=== PATIENT | female | born 1945 | race Caucasian/White ===

== ENCOUNTER 2022-06-19 16:10 | Emergency (ER) | payer OTHER, MEDICARE ==
[2022-06-19 16:39] VITALS: RESP 20; BMI 24.3
[2022-06-19] MEDS ORDERED: BENZOCAINE/MENTH/CETYLPYRD CL 1 EACH LOZENGE MM PRN (19:42)
[2022-06-19 20:41] VITALS: BP 107/47; PULSE 67; TEMP 98.3
== END 2022-06-19 21:00 | disposition home or self-care (01) ==
LOC: JER 16:10
DX: R68.89 Other general symptoms and signs (principal); W18.11XA Fall from or off toilet without subsequent striking against object, initial encounter
CPT/HCPCS: 73521-TC-FY; 99284-25; C9803-CS; U0003; U0005

== ENCOUNTER 2022-06-20 11:34 | Inpatient (IN) | payer OTHER, MEDICARE ==
[2022-06-20] MEDS ORDERED: ACETAMINOPHEN 325 MG TABLET (FP) PO ONE (11:52)
[2022-06-20] MEDS ORDERED: SODIUM CHLORIDE 0.9% 500 ML INFUS.BAG IV ONE (12:02)
[2022-06-20] MEDS ORDERED: ACETAMINOPHEN 325 MG TABLET (FP) ONE (12:24)
[2022-06-20 12:30] LABS: BASO % 0.8 % (0-2.0); EOS % 0.1 % (0-4.5); HEMATOCRIT 35.5 % (32.4-45.2); HEMOGLOBIN 11.5 GM/dL (10.7-15.3); LYMPH % 12.7 % (8-40); MCH 30.6 pg (25.7-33.7); MCHC 32.5 g/dl (32.0-36.0); MEAN CELL VOLUME 94.2 fl (80-96); MEAN PLT VOLUME 8.7 fl (7.5-11.1); MONO % 18.7 % (3.8-10.2); NEUT % 67.7 % (42.8-82.8); PLATELET COUNT 172 10^3/uL (134-434); RBC 3.77 M/mm3 (3.60-5.2); RDW 14.5 % (11.6-15.6); WHITE BLOOD COUNT 6.5 K/mm3 (4.0-10.0)
[2022-06-20 12:52] LABS: ALBUMIN 3.1 g/dl (3.4-5.0); CALCIUM 8.7 mg/dL (8.5-10.1)
[2022-06-20 12:57] LABS: BILIRUBIN,TOTAL 0.3 mg/dL (0.2-1)
[2022-06-20 15:19] LABS: VENOUS BASE EXCESS -0.9 mmol/L (-2-2); VENOUS O2 SATURATION 86.9 % (70-80); VENOUS PCO2 41.6 mmHg (38-52); VENOUS PH 7.382 (7.310-7.410)
[2022-06-20] MEDS ORDERED: ACETAMINOPHEN 325 MG TABLET (FP) PO PRN (16:37)
[2022-06-20 17:17] LABS: EPI CELLS 7 /uL (0-25.1); HYALINE CASTS 0 /uL (0-3.1); URINE APPEARANCE CLEAR; URINE BACTERIA 2051 /uL (0-1359); URINE BILIRUBIN NEGATIVE (NEGATIVE); URINE COLOR YELLOW; URINE GLUCOSE (UA) NEGATIVE (NEGATIVE); URINE KETONE NEGATIVE (NEGATIVE); URINE LEUK ESTERASE NEGATIVE (NEGATIVE); URINE NITRITE NEGATIVE (NEGATIVE); URINE PROTEIN NEGATIVE (NEGATIVE); URINE RBC 12 /uL (0-23.9); URINE UROBILINOGEN 0.2 mg/dL (0.2-1.0); URINE WBC 5 /uL (0-25.8)
[2022-06-20] MEDS ORDERED: LACTATED RINGERS SOLUTION 1,000 ML/1,000 ML INFUS.BAG IV SCH (18:15)
[2022-06-20] MEDS ORDERED: CEFTRIAXONE 1,000 MG in DEXTROSE 5%-WATER - 50 ML IVPB ONE (18:52)
[2022-06-20] MEDS ORDERED: CEFTRIAXONE 1 GM/50 ML BAG ONE (19:43)
[2022-06-20] MEDS ORDERED: guaiFENesin/D-METHORPHAN HB 10 ML UNIT-DOSE CUPS PO ONE (22:01)
[2022-06-20] MEDS ORDERED: guaiFENesin/D-METHORPHAN HB 10 ML UNIT-DOSE CUPS ONE (22:04)
[2022-06-21 07:55] LABS: HEMATOCRIT 37.5 % (32.4-45.2); HEMOGLOBIN 12.8 GM/dL (10.7-15.3); MCH 32.3 pg (25.7-33.7); MEAN CELL VOLUME 94.8 fl (80-96); MEAN PLT VOLUME 8.5 fl (7.5-11.1); PLATELET COUNT 158 10^3/uL (134-434); RBC 3.95 M/mm3 (3.60-5.2); RDW 14.6 % (11.6-15.6); WHITE BLOOD COUNT 6.6 K/mm3 (4.0-10.0)
[2022-06-21 08:20] LABS: BLOOD UREA NITROGEN 12.5 mg/dL (7-18); CALCIUM 8.3 mg/dL (8.5-10.1); MAGNESIUM 1.9 mg/dL (1.8-2.4)
[2022-06-21 08:23] LABS: CREATININE 0.9 mg/dL (0.55-1.3)
[2022-06-21 08:28] LABS: CHOLESTEROL 224 mg/dL (50-200); TRIGLYCERIDES 95 mg/dL (0-150)
[2022-06-21 08:30] LABS: LDL CHOLESTEROL (ONLY SJRH) 129 mg/dL (5-100)
[2022-06-21 08:31] LABS: HDL CHOLESTEROL 63 mg/dL (40-60)
[2022-06-21] MEDS ORDERED: traMADol HCL 50 MG TABLET PO SCH (18:30)
[2022-06-21] MEDS: FAMOTIDINE 20 MG TABLET PO SCH (23:48)
[2022-06-22 00:42] VITALS: BMI 25.4
[2022-06-22] MEDS: FAMOTIDINE 20 MG TABLET PO SCH ×2 (10:00→21:33)
[2022-06-22] MEDS ORDERED: SODIUM CHLORIDE 500 ML IV STA (11:10)
[2022-06-22] MEDS: SODIUM CHLORIDE 1,000 ML IV SCH (13:37)
[2022-06-23] MEDS: FAMOTIDINE 20 MG TABLET PO SCH ×2 (10:03→21:49)
[2022-06-23] MEDS: SODIUM CHLORIDE 1,000 ML IV SCH (17:34)
[2022-06-24] MEDS: FAMOTIDINE 20 MG TABLET PO SCH ×2 (10:27→21:30)
[2022-06-24] MEDS: MIDODRINE HCL 5 MG TABLET PO SCH (20:00)
[2022-06-24] MEDS: LIDOCAINE PATCH REMOVAL MC SCH (21:54)
[2022-06-25] MEDS: LIDOCAINE 5% TOPICAL PATCH TP SCH ×2 (00:23→11:03)
[2022-06-25] MEDS: FAMOTIDINE 20 MG TABLET PO SCH ×2 (11:03→22:08)
[2022-06-25] MEDS: MIDODRINE HCL 5 MG TABLET PO SCH ×2 (11:04→18:01)
[2022-06-25] MEDS ORDERED: SODIUM CHLORIDE 0.9% 500 ML INFUS.BAG IV ONE (12:16)
[2022-06-25] MEDS: ENOXAPARIN NA (PORCINE) 40 MG/0.4 ML DISP.SYRIN SQ SCH (12:57)
[2022-06-25 19:47] LABS: HEMATOCRIT 38.1 % (32.4-45.2); HEMOGLOBIN 12.8 GM/dL (10.7-15.3); MCH 31.5 pg (25.7-33.7); MCHC 33.6 g/dl (32.0-36.0); MEAN CELL VOLUME 93.8 fl (80-96); MEAN PLT VOLUME 8.7 fl (7.5-11.1); PLATELET COUNT 183 10^3/uL (134-434); RBC 4.06 M/mm3 (3.60-5.2); RDW 14.2 % (11.6-15.6); WHITE BLOOD COUNT 4.7 K/mm3 (4.0-10.0)
[2022-06-25 20:09] LABS: CALCIUM 8.9 mg/dL (8.5-10.1)
[2022-06-25 20:10] LABS: BLOOD UREA NITROGEN 13.8 mg/dL (7-18)
[2022-06-25 20:13] LABS: CREATININE 0.8 mg/dL (0.55-1.3)
[2022-06-25] MEDS: LIDOCAINE PATCH REMOVAL MC SCH (22:08)
[2022-06-26 07:06] LABS: BLOOD UREA NITROGEN 13.9 mg/dL (7-18); CALCIUM 8.9 mg/dL (8.5-10.1)
[2022-06-26 07:09] LABS: CREATININE 0.8 mg/dL (0.55-1.3)
[2022-06-26] MEDS: LIDOCAINE 5% TOPICAL PATCH TP SCH ×2 (09:54→10:35)
[2022-06-26] MEDS: MIDODRINE HCL 5 MG TABLET PO SCH ×3 (09:54→17:29)
[2022-06-26] MEDS: FAMOTIDINE 20 MG TABLET PO SCH ×3 (09:54→21:46)
[2022-06-26] MEDS: ENOXAPARIN NA (PORCINE) 40 MG/0.4 ML DISP.SYRIN SQ SCH ×2 (09:54→10:04)
[2022-06-26] MEDS: LIDOCAINE PATCH REMOVAL MC SCH (21:45)
[2022-06-27] MEDS: ENOXAPARIN NA (PORCINE) 40 MG/0.4 ML DISP.SYRIN SQ SCH (11:00)
[2022-06-27] MEDS: MIDODRINE HCL 5 MG TABLET PO SCH (11:00)
[2022-06-27] MEDS: FAMOTIDINE 20 MG TABLET PO SCH ×2 (11:00→22:30)
[2022-06-27] MEDS: LIDOCAINE 5% TOPICAL PATCH TP SCH (11:00)
[2022-06-27 11:19] VITALS: RESP 18
[2022-06-27] MEDS: LIDOCAINE PATCH REMOVAL MC SCH (22:29)
[2022-06-28] MEDS ORDERED: ACETAMINOPHEN 325 MG TABLET (FP) PO PRN (01:37)
[2022-06-28] MEDS: MIDODRINE HCL 5 MG TABLET PO SCH ×2 (07:21→09:40)
[2022-06-28] MEDS: LIDOCAINE 5% TOPICAL PATCH TP SCH (09:40)
[2022-06-28] MEDS: ENOXAPARIN NA (PORCINE) 40 MG/0.4 ML DISP.SYRIN SQ SCH (09:44)
[2022-06-28] MEDS ORDERED: FAMOTIDINE 20 MG TABLET PO SCH (10:00)
[2022-06-28 10:05] LABS: BASO % 1.2 % (0-2.0); EOS % 2.5 % (0-4.5); HEMATOCRIT 40.1 % (32.4-45.2); HEMOGLOBIN 13.5 GM/dL (10.7-15.3); LYMPH % 25.8 % (8-40); MCH 31.4 pg (25.7-33.7); MCHC 33.6 g/dl (32.0-36.0); MEAN CELL VOLUME 93.5 fl (80-96); MEAN PLT VOLUME 8.8 fl (7.5-11.1); MONO % 11.5 % (3.8-10.2); PLATELET COUNT 203 10^3/uL (134-434); RBC 4.29 M/mm3 (3.60-5.2); RDW 13.9 % (11.6-15.6); WHITE BLOOD COUNT 5.9 K/mm3 (4.0-10.0)
[2022-06-28 10:29] LABS: CALCIUM 9.1 mg/dL (8.5-10.1)
[2022-06-28 10:32] LABS: ALBUMIN 3.2 g/dl (3.4-5.0); BLOOD UREA NITROGEN 20.6 mg/dL (7-18)
[2022-06-28 10:34] LABS: CREATININE 0.9 mg/dL (0.55-1.3)
[2022-06-28 10:36] LABS: BILIRUBIN,TOTAL 0.4 mg/dL (0.2-1); TOT PROT 6.6 g/dl (6.4-8.2)
[2022-06-28 12:46] VITALS: BP 104/41; PULSE 90; TEMP 97.6
== END 2022-06-28 13:17 | DRG 553 ==
LOC: JER 11:34 → INTOOBSV 14:22 → JERBED 14:22 → UNDOADMOB 14:22 → JERBED 18:11 → J8W 06-21 21:24 → J4S 06-22 02:29 → OBSVTOIN 06-25 11:53 → J6S 06-27 19:17
PROVIDERS: ADMIT Internal Medicine; ATTEND Nurse Practitioner Family
DX: M17.0 Bilateral primary osteoarthritis of knee (principal); U07.1 COVID-19; N39.0 Urinary tract infection, site not specified; M25.562 Pain in left knee; M25.561 Pain in right knee; K21.9 Gastro-esophageal reflux disease without esophagitis; E86.0 Dehydration; G89.29 Other chronic pain; I95.9 Hypotension, unspecified; M62.81 Muscle weakness (generalized); M25.462 Effusion, left knee; Z85.3 Personal history of malignant neoplasm of breast
CPT/HCPCS: 36415; 70450-TC; 71046-TC-FY; 72125-TC; 72170-TC-FY; 73562-TC-LT-FY; 73562-TC-RT-FY; 80048; 80053; 80061; 81003; 82803; 83036; 83605; 83735; 84100; 84443; 84484; 85025; 85027; 87045; 87046; 93005; 93010; 93306-TC; 93880-TC; 97116-GP; 97162-GP; 99285-25; C9803-CS; G0378; U0003; U0005

== ENCOUNTER 2024-01-30 23:12 | Inpatient (IN) | payer OTHER ==
[2024-01-31 00:42] LABS: BASO % 0.1 % (0-2.0); EOS % 0.3 % (0-4.5); HEMATOCRIT 36.6 % (32.4-45.2); HEMOGLOBIN 12.4 GM/dL (10.7-15.3); LYMPH % 4.5 % (8-40); MCH 32.1 pg (25.7-33.7); MEAN CELL VOLUME 94.5 fl (80-96); MEAN PLT VOLUME 8.3 fl (7.5-11.1); MONO % 9.7 % (3.8-10.2); NEUT % 85.4 % (42.8-82.8); PLATELET COUNT 160 10^3/uL (134-434); RBC 3.88 M/mm3 (3.60-5.2); RDW 14.4 % (11.6-15.6); WHITE BLOOD COUNT 10.4 K/mm3 (4.0-10.0)
[2024-01-31 01:02] LABS: POTASSIUM 3.9 mmol/L (3.5-5.1)
[2024-01-31 01:05] LABS: CALCIUM 8.8 mg/dL (8.5-10.1)
[2024-01-31 01:06] LABS: ALBUMIN 3.2 g/dl (3.4-5.0); BLOOD UREA NITROGEN 14.6 mg/dL (7-18)
[2024-01-31 01:09] LABS: CREATININE 0.9 mg/dL (0.55-1.3)
[2024-01-31 01:10] LABS: BILIRUBIN,TOTAL 0.6 mg/dL (0.2-1); TOT PROT 6.4 g/dl (6.4-8.2)
[2024-01-31] MEDS: LACTATED RINGERS SOLUTION 1,000 ML/1,000 ML INFUS.BAG IV STA (03:14)
[2024-01-31 04:50] LABS: EPI CELLS 8 /uL (0-25.1); HYALINE CASTS 2 /uL (0-3.1); URINE APPEARANCE CLEAR; URINE BILIRUBIN NEGATIVE (NEGATIVE); URINE COLOR YELLOW; URINE GLUCOSE (UA) NEGATIVE (NEGATIVE); URINE KETONE TRACE (NEGATIVE); URINE LEUK ESTERASE 3+ (NEGATIVE); URINE NITRITE POSITIVE (NEGATIVE); URINE PROTEIN NEGATIVE (NEGATIVE); URINE RBC 77 /uL (0-23.9); URINE WBC 827 /uL (0-25.8)
[2024-01-31] MEDS ORDERED: CEFTRIAXONE 1 GM/50 ML BAG ONE (05:13)
[2024-01-31] MEDS: CEFTRIAXONE 1 GM in DEXTROSE 5%-WATER - 100 ML IVPB ONE (05:13)
[2024-01-31] MEDS: SODIUM CHLORIDE 500 ML IV STA ×2 (05:41→07:35)
[2024-01-31] MEDS ORDERED: MIDODRINE HCL 5 MG TABLET PO PRN (08:16)
[2024-01-31] MEDS ORDERED: ACETAMINOPHEN 1000 MG/100 ML BAG IVPB PRN (08:16)
[2024-01-31] MEDS: SODIUM CHLORIDE 1,000 ML IV SCH (08:25)
[2024-01-31 10:46] VITALS: BMI 25.4
[2024-02-01 07:54] LABS: HEMATOCRIT 35.1 % (32.4-45.2); HEMOGLOBIN 11.5 GM/dL (10.7-15.3); MCH 31.4 pg (25.7-33.7); MCHC 32.7 g/dl (32.0-36.0); MEAN CELL VOLUME 95.9 fl (80-96); PLATELET COUNT 158 10^3/uL (134-434); RBC 3.66 M/mm3 (3.60-5.2); RDW 14.4 % (11.6-15.6); WHITE BLOOD COUNT 5.4 K/mm3 (4.0-10.0)
[2024-02-01 08:16] LABS: POTASSIUM 3.9 mmol/L (3.5-5.1)
[2024-02-01 08:17] LABS: CALCIUM 8.5 mg/dL (8.5-10.1)
[2024-02-01 08:18] LABS: ALBUMIN 2.8 g/dl (3.4-5.0); BLOOD UREA NITROGEN 10.5 mg/dL (7-18)
[2024-02-01 08:21] LABS: CREATININE 0.8 mg/dL (0.55-1.3)
[2024-02-01 08:23] LABS: BILIRUBIN,TOTAL 0.3 mg/dL (0.2-1); TOT PROT 5.6 g/dl (6.4-8.2)
[2024-02-01 09:40] LABS: ANISOCYTOSIS 0; MACROCYTOSIS 0
[2024-02-01] MEDS: CEFTRIAXONE 1 GM in DEXTROSE 5%-WATER - 50 ML IVPB SCH (09:49)
[2024-02-02] MEDS: MIDODRINE HCL 5 MG TABLET PO SCH (10:55)
[2024-02-02 11:03] LABS: BASO % 0.9 % (0-2.0); EOS % 3.2 % (0-4.5); HEMATOCRIT 41.7 % (32.4-45.2); HEMOGLOBIN 13.9 GM/dL (10.7-15.3); LYMPH % 17.2 % (8-40); MCH 31.9 pg (25.7-33.7); MCHC 33.4 g/dl (32.0-36.0); MEAN CELL VOLUME 95.5 fl (80-96); MEAN PLT VOLUME 8.8 fl (7.5-11.1); MONO % 13.4 % (3.8-10.2); NEUT % 65.3 % (42.8-82.8); PLATELET COUNT 174 10^3/uL (134-434); RBC 4.36 M/mm3 (3.60-5.2); RDW 14.7 % (11.6-15.6); WHITE BLOOD COUNT 5.7 K/mm3 (4.0-10.0)
[2024-02-02 11:17] LABS: POTASSIUM 4.4 mmol/L (3.5-5.1)
[2024-02-02 11:19] LABS: BLOOD UREA NITROGEN 11.9 mg/dL (7-18)
[2024-02-02 11:23] LABS: CREATININE 0.8 mg/dL (0.55-1.3)
[2024-02-03 06:39] VITALS: BP 123/50
[2024-02-03 09:25] VITALS: PULSE 62; RESP 16; TEMP 97.9
== END 2024-02-03 15:00 | DRG 690 ==
LOC: JER 23:12 → JERBED 01-31 04:55 → J4S 01-31 10:05
PROVIDERS: ADMIT Internal Medicine; ATTEND Internal Medicine
DX: N39.0 Urinary tract infection, site not specified (principal); E27.40 Unspecified adrenocortical insufficiency; E78.5 Hyperlipidemia, unspecified; K21.9 Gastro-esophageal reflux disease without esophagitis; I95.9 Hypotension, unspecified; G89.29 Other chronic pain; R00.1 Bradycardia, unspecified; W18.30XA Fall on same level, unspecified, initial encounter; Y92.099 Unspecified place in other non-institutional residence as the place of occurrence of the external cause; Y99.9 Unspecified external cause status; Z85.3 Personal history of malignant neoplasm of breast; Z96.641 Presence of right artificial hip joint
CPT/HCPCS: 36415; 70450-TC; 71045-TC-FY; 72125-TC; 72170-TC-FY; 73521-TC-FY; 73560-TC-RT-FY; 73562-TC-LT-FY; 73590-TC-LT-FY; 80048; 80053; 80061; 81003; 82533; 82550; 82962; 83036; 83605; 83735; 84439; 84443; 84484; 85025; 87040; 87086; 93005; 93010; 93306-TC; 93880-TC; 97116-GP; 97161-GP; 99285-25

== ENCOUNTER 2024-02-16 17:02 | Emergency (ER) | payer OTHER ==
[2024-02-16 17:32] VITALS: TEMP 98.3; BMI 24.3
[2024-02-16 19:12] LABS: BASO % 0.5 % (0-2.0); HEMATOCRIT 40.1 % (32.4-45.2); HEMOGLOBIN 13.7 GM/dL (10.7-15.3); LYMPH % 3.5 % (8-40); MCH 32.4 pg (25.7-33.7); MCHC 34.2 g/dl (32.0-36.0); MEAN CELL VOLUME 94.9 fl (80-96); MEAN PLT VOLUME 8.7 fl (7.5-11.1); PLATELET COUNT 172 10^3/uL (134-434); RBC 4.23 M/mm3 (3.60-5.2); RDW 15.1 % (11.6-15.6); WHITE BLOOD COUNT 7.9 K/mm3 (4.0-10.0)
[2024-02-16 19:14] LABS: EPI CELLS 14 /uL (0-25.1); HYALINE CASTS 5 /uL (0-3.1); PH,URINE 5.5 (5.0-8.0); URINE APPEARANCE CLEAR; URINE BACTERIA 2 /uL (0-1359); URINE BILIRUBIN NEGATIVE (NEGATIVE); URINE COLOR YELLOW; URINE GLUCOSE (UA) NEGATIVE (NEGATIVE); URINE KETONE TRACE (NEGATIVE); URINE LEUK ESTERASE NEGATIVE (NEGATIVE); URINE NITRITE NEGATIVE (NEGATIVE); URINE PROTEIN TRACE (NEGATIVE); URINE UROBILINOGEN 0.2 mg/dL (0.2-1.0); URINE WBC 18 /uL (0-25.8)
[2024-02-16 19:32] LABS: POTASSIUM 4.1 mmol/L (3.5-5.1)
[2024-02-16 19:33] LABS: BLOOD UREA NITROGEN 20.8 mg/dL (7-18); CALCIUM 8.9 mg/dL (8.5-10.1)
[2024-02-16 19:34] LABS: ALBUMIN 3.4 g/dl (3.4-5.0); MAGNESIUM 2.2 mg/dL (1.8-2.4)
[2024-02-16 19:39] LABS: BILIRUBIN,TOTAL 0.4 mg/dL (0.2-1); TOT PROT 6.9 g/dl (6.4-8.2)
[2024-02-16 23:07] VITALS: BP 110/60; PULSE 78; RESP 18
== END 2024-02-16 23:08 | disposition home or self-care (01) ==
LOC: JER 17:02
DX: R53.1 Weakness (principal)
CPT/HCPCS: 36415; 80053; 81003; 82962; 83735; 84484; 85025; 87086; 99283-25

== ENCOUNTER 2024-07-21 07:21 | Inpatient (IN) | payer OTHER ==
[2024-07-21] MEDS ORDERED: ACETAMINOPHEN 325 MG TABLET (FP) ONE (08:21)
[2024-07-21] MEDS: ACETAMINOPHEN 325 MG TABLET (FP) PO ONE (08:25)
[2024-07-21 09:20] LABS: BASO % 0.4 % (0-2.0); EOS % 0.1 % (0-4.5); HEMATOCRIT 36.6 % (32.4-45.2); HEMOGLOBIN 12.1 GM/dL (10.7-15.3); LYMPH % 5.1 % (8-40); MCH 31.5 pg (25.7-33.7); MCHC 33.1 g/dl (32.0-36.0); MEAN CELL VOLUME 95.2 fl (80-96); MEAN PLT VOLUME 8.3 fl (7.5-11.1); MONO % 5.6 % (3.8-10.2); NEUT % 88.8 % (42.8-82.8); PLATELET COUNT 159 10^3/uL (134-434); RBC 3.84 M/mm3 (3.60-5.2); RDW 14.6 % (11.6-15.6); WHITE BLOOD COUNT 11.3 K/mm3 (4.0-10.0)
[2024-07-21 09:47] LABS: POTASSIUM 4.1 mmol/L (3.5-5.1)
[2024-07-21 09:49] LABS: CALCIUM 8.9 mg/dL (8.5-10.1)
[2024-07-21 09:50] LABS: ALBUMIN 3.5 g/dl (3.4-5.0); BLOOD UREA NITROGEN 20.3 mg/dL (7-18)
[2024-07-21 09:53] LABS: CREATININE 1.1 mg/dL (0.55-1.3)
[2024-07-21 09:54] LABS: BILIRUBIN,TOTAL 0.6 mg/dL (0.2-1); TOT PROT 6.7 g/dl (6.4-8.2)
[2024-07-21 09:59] LABS: MAGNESIUM 2.2 mg/dL (1.8-2.4)
[2024-07-21] MEDS ORDERED: ACETAMINOPHEN INJECTION 100 ML ONE (14:38)
[2024-07-21] MEDS: SODIUM CHLORIDE 0.9% 500 ML INFUS.BAG IV ONE ×2 (14:45→21:02)
[2024-07-21] MEDS ORDERED: ONDANSETRON 4 MG/2 ML VIAL ONE (14:47)
[2024-07-21] MEDS: ACETAMINOPHEN 1000 MG/100 ML BAG IVPB ONE (15:04)
[2024-07-21] MEDS: ONDANSETRON 4 MG/2 ML VIAL IVPUSH ONE (15:04)
[2024-07-21 15:34] LABS: EPI CELLS 7 /uL (0-25.1); HYALINE CASTS 12 /uL (0-3.1); URINE APPEARANCE TURBID; URINE BACTERIA >9,000 /uL (0-1359); URINE BILIRUBIN NEGATIVE (NEGATIVE); URINE COLOR YELLOW; URINE GLUCOSE (UA) NEGATIVE (NEGATIVE); URINE KETONE 1+ (NEGATIVE); URINE LEUK ESTERASE 3+ (NEGATIVE); URINE NITRITE POSITIVE (NEGATIVE); URINE PROTEIN 2+ (NEGATIVE); URINE WBC 24058 /uL (0-25.8)
[2024-07-21 15:59] LABS: URINE RBC 379 /uL (0-23.9); YEAST NONE SEEN (NEGATIVE)
[2024-07-21 16:30] LABS: VENOUS BASE EXCESS 1.3 mmol/L (-2-2); VENOUS O2 SATURATION 77.8 % (70-80); VENOUS PCO2 42.8 mmHg (38-52); VENOUS PH 7.406 (7.310-7.410)
[2024-07-21 16:37] LABS: INR 1.21 (0.83-1.09); PROTHROMBIN TIME (PATIENT) 13.8 SEC (9.7-13.0)
[2024-07-21] MEDS ORDERED: CEFTRIAXONE 1 GM/50 ML BAG ONE (16:38)
[2024-07-21 16:40] LABS: ACTIVATED PTT 30.9 SECONDS (25.2-36.5)
[2024-07-21] MEDS: CEFTRIAXONE 1,000 MG in DEXTROSE 5%-WATER - 50 ML IVPB ONE (16:46)
[2024-07-21] MEDS ORDERED: PIPERACILLIN/TAZOB 4.5 GM 4.5 GM/100 ML BAG IVPB ONE (21:01)
[2024-07-21] MEDS: PIPERACILLIN/TAZOB 4.5 GM 4.5 GM in DEXTROSE 5%-WATER 100 ML IVPB ONE (21:03)
[2024-07-21] MEDS: REMDESIVIR 200 MG in SODIUM CHLORIDE 250 ML IVPB ONE (23:31)
[2024-07-21] MEDS: DEXAMETHASONE SOD PHOSPHATE 4 MG/1 ML VIAL IVPUSH ONE (23:32)
[2024-07-21] MEDS ORDERED: DEXAMETHASONE SOD PHOSPHATE 4 MG/1 ML VIAL ONE (23:32)
[2024-07-22 04:29] VITALS: BMI 26.6
[2024-07-22 08:57] LABS: HEMOGLOBIN 10.9 GM/dL (10.7-15.3); MCH 31.6 pg (25.7-33.7); MCHC 33.1 g/dl (32.0-36.0); MEAN CELL VOLUME 95.6 fl (80-96); PLATELET COUNT 122 10^3/uL (134-434); RBC 3.45 M/mm3 (3.60-5.2); WHITE BLOOD COUNT 15.4 K/mm3 (4.0-10.0)
[2024-07-22 09:19] LABS: POTASSIUM 4.1 mmol/L (3.5-5.1)
[2024-07-22 09:22] LABS: ANISOCYTOSIS 0; MACROCYTOSIS 0
[2024-07-22 09:27] LABS: CALCIUM 7.9 mg/dL (8.5-10.1)
[2024-07-22 09:28] LABS: BILIRUBIN,TOTAL 0.3 mg/dL (0.2-1); BLOOD UREA NITROGEN 16.6 mg/dL (7-18)
[2024-07-22 09:29] LABS: ALBUMIN 2.6 g/dl (3.4-5.0); TOT PROT 5.4 g/dl (6.4-8.2)
[2024-07-22] MEDS: PIPERACILLIN/TAZOB 4.5 GM 4.5 GM/100 ML BAG IVPB SCH (09:30)
[2024-07-22 09:35] LABS: CREATININE 0.9 mg/dL (0.55-1.3)
[2024-07-22] MEDS: MIDODRINE HCL 5 MG TABLET PO SCH (10:13)
[2024-07-22] MEDS: FAMOTIDINE 20 MG TABLET PO SCH (10:13)
[2024-07-22] MEDS: ESCITALOPRAM OXALATE 10 MG TABLET PO SCH (10:13)
[2024-07-22] MEDS: DEXAMETHASONE SOD PHOSPHATE 10 MG/1 ML VIAL IVPUSH SCH (10:13)
[2024-07-22] MEDS: SODIUM CHLORIDE 1,000 ML IV SCH (14:48)
[2024-07-22] MEDS ORDERED: CEFTRIAXONE 1 G/50 ML PREMIX 50 ML IVPB SCH (18:00)
[2024-07-22] MEDS: CEFTRIAXONE 1 G/50 ML PREMIX 50 ML IVPB SCH (18:51)
[2024-07-23] MEDS ORDERED: REMDESIVIR 200 MG in SODIUM CHLORIDE 250 ML IVPB ONE ×2 (11:10→13:00)
[2024-07-23] MEDS: REMDESIVIR IVPB SCH (14:37)
[2024-07-23] MEDS: DEXTROSE 5% IVPB SCH (14:37)
[2024-07-23] MEDS: WATER IVPB SCH (14:37)
[2024-07-24 08:32] LABS: BASO % 0.3 % (0-2.0); HEMATOCRIT 32.9 % (32.4-45.2); LYMPH % 8.6 % (8-40); MCH 31.9 pg (25.7-33.7); MCHC 33.3 g/dl (32.0-36.0); MEAN CELL VOLUME 95.7 fl (80-96); MEAN PLT VOLUME 10.3 fl (7.5-11.1); NEUT % 84.1 % (42.8-82.8); PLATELET COUNT 139 10^3/uL (134-434); RBC 3.44 M/mm3 (3.60-5.2); RDW 14.8 % (11.6-15.6); WHITE BLOOD COUNT 9.2 K/mm3 (4.0-10.0)
[2024-07-24 08:46] LABS: POTASSIUM 4.1 mmol/L (3.5-5.1)
[2024-07-24 08:50] LABS: CALCIUM 8.1 mg/dL (8.5-10.1)
[2024-07-24 08:51] LABS: BLOOD UREA NITROGEN 21.3 mg/dL (7-18)
[2024-07-24 08:54] LABS: CREATININE 0.9 mg/dL (0.55-1.3)
[2024-07-26 06:17] VITALS: PULSE 87
[2024-07-26 09:32] LABS: HEMATOCRIT 45.2 % (32.4-45.2); HEMOGLOBIN 15.3 GM/dL (10.7-15.3); MCH 32.3 pg (25.7-33.7); MCHC 33.9 g/dl (32.0-36.0); MEAN CELL VOLUME 95.3 fl (80-96); MEAN PLT VOLUME 9.7 fl (7.5-11.1); RBC 4.74 M/mm3 (3.60-5.2); RDW 14.8 % (11.6-15.6)
[2024-07-26 09:33] LABS: WHITE BLOOD COUNT 9.8 K/mm3 (4.0-10.0)
[2024-07-26 09:34] LABS: PLATELET COUNT 168 10^3/uL (134-434)
[2024-07-26] MEDS: PIPERACILLIN/TAZOB 4.5 GM 4.5 GM in DEXTROSE 5%-WATER 100 ML IVPB SCH (09:48)
[2024-07-26] MEDS: CEFTRIAXONE 1 G/50 ML PREMIX 50 ML IVPB SCH ×2 (09:48→10:03)
[2024-07-26 09:49] LABS: POTASSIUM 3.6 mmol/L (3.5-5.1)
[2024-07-26 10:01] LABS: CALCIUM 8.7 mg/dL (8.5-10.1)
[2024-07-26 10:04] LABS: BLOOD UREA NITROGEN 15.8 mg/dL (7-18)
[2024-07-26 11:31] LABS: ANISOCYTOSIS 0; HELMET CELLS 0; HOWELL-JOLLY BODIES 0; MACROCYTOSIS 0; OVALOCYTE 0; ROULEAU 0; SICKELED CELLS 0; TARGET CELLS 0; TEAR DROP CELLS 0; TOXIC GRANULATION 0
[2024-07-26] MEDS ORDERED: ACETAMINOPHEN 325 MG TABLET (FP) PO PRN (12:45)
[2024-07-26 15:09] VITALS: BP 105/66; RESP 18; TEMP 97.7
[2024-07-26] MEDS: MIDODRINE HCL 5 MG TABLET PO SCH (17:54)
[2024-07-26] MEDS ORDERED: FAMOTIDINE 20 MG TABLET PO SCH (22:00)
[2024-07-26] MEDS ORDERED: LIDOCAINE PATCH REMOVAL MC SCH (22:00)
[2024-07-26] MEDS ORDERED: CEFPODOXIME PROXETIL 100 MG TABLET PO SCH (22:00)
[2024-07-27] MEDS ORDERED: LIDOCAINE 5% TOPICAL PATCH TP SCH (10:00)
== END 2024-07-26 18:53 | disposition home or self-care (01) | DRG 871 ==
LOC: JER 07:21 → JERBED 22:03 → J4S 07-22 02:39
PROVIDERS: ADMIT Internal Medicine; ATTEND Internal Medicine
PROC: XW033E5 Introduction of Remdesivir Anti-infective into Peripheral Vein, Percutaneous Approach, New Technology Group 5 (ICD-10-PCS; principal; 2024-07-23)
DX: A41.89 Other specified sepsis (principal); U07.1 COVID-19; N39.0 Urinary tract infection, site not specified; N12 Tubulo-interstitial nephritis, not specified as acute or chronic; K21.9 Gastro-esophageal reflux disease without esophagitis; M25.569 Pain in unspecified knee; F03.90 Unspecified dementia, unspecified severity, without behavioral disturbance, psychotic disturbance, mood disturbance, and anxiety; R79.89 Other specified abnormal findings of blood chemistry; Z85.3 Personal history of malignant neoplasm of breast; R53.1 Weakness; R00.1 Bradycardia, unspecified; I95.9 Hypotension, unspecified; B96.20 Unspecified Escherichia coli [E. coli] as the cause of diseases classified elsewhere; K59.00 Constipation, unspecified; W05.0XXA Fall from non-moving wheelchair, initial encounter; Y92.128 Other place in nursing home as the place of occurrence of the external cause; Y99.9 Unspecified external cause status; Z96.641 Presence of right artificial hip joint
CPT/HCPCS: 0241U-QW; 36415; 70450-TC; 71045-TC-FY; 72070-TC-FY; 72100-TC-FY; 72125-TC; 73030-TC-RT-FY; 73521-TC-FY; 74177-TC; 80048; 80053; 80061; 81003; 82550; 82803; 82962; 83605; 83735; 84436; 84443; 84484; 85025; 85610; 85730; 86850; 86900; 86901; 87040; 87086; 87186; 93005; 93010; 97116-GP; 97161-GP; 99285-25; J0131; J0248; J1100

== ENCOUNTER 2024-08-24 08:14 | Emergency (ER) | payer OTHER, MEDICARE ==
[2024-08-24] MEDS ORDERED: ACETAMINOPHEN 500 MG TABLET (FP) ONE (08:42)
[2024-08-24] MEDS: ACETAMINOPHEN 500 MG TABLET (FP) PO ONE (08:45)
[2024-08-24 09:23] VITALS: BP 112/60; PULSE 66; RESP 16; TEMP 97.9; BMI 25.7
[2024-08-24] MEDS ORDERED: DIPHTH,PERTUSS(ACELL),TET 0.5 ML DISP.SYRIN IM ONE (09:31)
[2024-08-24] MEDS: DIPHTH,PERTUSS(ACELL),TET 0.5 ML DISP.SYRIN IM ONE (09:49)
[2024-08-24] MEDS ORDERED: AZITHROMYCIN 500 MG TABLET ONE (12:34)
[2024-08-24] MEDS: AZITHROMYCIN 250 MG TABLET PO ONE (12:35)
== END 2024-08-24 16:11 | disposition home or self-care (01) ==
LOC: JER 08:14
PROC: 3E0234Z Introduction of Serum, Toxoid and Vaccine into Muscle, Percutaneous Approach (ICD-10-PCS; principal; 2024-08-24)
DX: S01.511A Laceration without foreign body of lip, initial encounter (principal); W06.XXXA Fall from bed, initial encounter; Z23 Encounter for immunization
CPT/HCPCS: 70450-TC; 70486-TC; 72125-TC; 90471; 90715; 93005; 93010; 99284-25

== ENCOUNTER 2024-10-15 13:29 | Inpatient (IN) | payer OTHER, MEDICARE ==
[2024-10-15 15:11] LABS: BASO % 0.8 % (0-2.0); EOS % 0.4 % (0-4.5); HEMATOCRIT 35.1 % (32.4-45.2); HEMOGLOBIN 11.6 GM/dL (10.7-15.3); LYMPH % 12.5 % (8-40); MCH 31.6 pg (25.7-33.7); MEAN CELL VOLUME 95.7 fl (80-96); MONO % 17.2 % (3.8-10.2); NEUT % 69.1 % (42.8-82.8); PLATELET COUNT 139 10^3/uL (134-434); RBC 3.67 M/mm3 (3.60-5.2); RDW 15.4 % (11.6-15.6); WHITE BLOOD COUNT 4.7 K/mm3 (4.0-10.0)
[2024-10-15 15:31] LABS: POTASSIUM 3.9 mmol/L (3.5-5.1)
[2024-10-15 15:33] LABS: CALCIUM 8.7 mg/dL (8.5-10.1)
[2024-10-15 15:34] LABS: ALBUMIN 3.2 g/dl (3.4-5.0); BLOOD UREA NITROGEN 15.4 mg/dL (7-18)
[2024-10-15 15:39] LABS: BILIRUBIN,TOTAL 0.3 mg/dL (0.2-1)
[2024-10-15 16:30] LABS: VENOUS BASE EXCESS 2.3 mmol/L (-2-2); VENOUS O2 SATURATION 96.1 % (70-80); VENOUS PCO2 35.6 mmHg (38-52); VENOUS PH 7.476 (7.310-7.410)
[2024-10-15] MEDS ORDERED: ONDANSETRON 4 MG/2 ML VIAL ONE (16:45)
[2024-10-15] MEDS: ONDANSETRON 4 MG/2 ML VIAL IVPUSH ONE (16:55)
[2024-10-15] MEDS: SODIUM CHLORIDE 0.9% 500 ML INFUS.BAG IV ONE (16:55)
[2024-10-15] MEDS ORDERED: ACETAMINOPHEN INJECTION 100 ML ONE (18:31)
[2024-10-15] MEDS: ACETAMINOPHEN 1000 MG/100 ML BAG IVPB ONE (18:33)
[2024-10-15] MEDS ORDERED: ACETAMINOPHEN 325 MG TABLET (FP) PO PRN (19:34)
[2024-10-15] MEDS ORDERED: DOCUSATE SODIUM 100 MG CAPSULE (FP) PO PRN (19:34)
[2024-10-15] MEDS ORDERED: OSELTAMIVIR PHOSPHATE 75 MG CAPSULE ONE (19:35)
[2024-10-15] MEDS: OSELTAMIVIR PHOSPHATE 75 MG CAPSULE PO ONE (19:38)
[2024-10-15] MEDS ORDERED: ONDANSETRON 4 MG/2 ML VIAL IVPUSH PRN (23:00)
[2024-10-16 02:10] VITALS: BMI 25.0
[2024-10-16] MEDS ORDERED: TRIMETHOBENZAMIDE HCL 200MG/2ML INJ IM PRN (07:16)
[2024-10-16 09:32] LABS: BASO % 1.1 % (0-2.0); EOS % 1.2 % (0-4.5); HEMATOCRIT 37.2 % (32.4-45.2); HEMOGLOBIN 12.4 GM/dL (10.7-15.3); LYMPH % 13.7 % (8-40); MCHC 33.3 g/dl (32.0-36.0); MEAN CELL VOLUME 96.1 fl (80-96); MEAN PLT VOLUME 8.9 fl (7.5-11.1); MONO % 18.6 % (3.8-10.2); NEUT % 65.4 % (42.8-82.8); PLATELET COUNT 138 10^3/uL (134-434); RBC 3.87 M/mm3 (3.60-5.2); RDW 15.1 % (11.6-15.6); WHITE BLOOD COUNT 4.5 K/mm3 (4.0-10.0)
[2024-10-16 09:39] LABS: POTASSIUM 4.1 mmol/L (3.5-5.1)
[2024-10-16 09:40] LABS: INR 1.12 (0.83-1.09); PROTHROMBIN TIME (PATIENT) 12.6 SEC (9.7-13.0)
[2024-10-16 09:43] LABS: ACTIVATED PTT 26.7 SECONDS (25.2-36.5); CALCIUM 8.9 mg/dL (8.5-10.1)
[2024-10-16 09:44] LABS: BLOOD UREA NITROGEN 10.5 mg/dL (7-18)
[2024-10-16 09:47] LABS: CREATININE 0.9 mg/dL (0.55-1.3); PHOSPHOROUS 2.9 mg/dL (2.5-4.9)
[2024-10-16] MEDS: MULTIVITAMINS (DAILY MVI) TABLET (FP) PO SCH (10:36)
[2024-10-16] MEDS: FAMOTIDINE 20 MG TABLET PO SCH (10:36)
[2024-10-16] MEDS: ESCITALOPRAM OXALATE 10 MG TABLET PO SCH (11:23)
[2024-10-16] MEDS: FERROUS SO4 325 MG TABLET (FP) PO SCH (11:23)
[2024-10-16] MEDS: ENOXAPARIN NA (PORCINE) 40 MG/0.4 ML DISP.SYRIN SQ SCH (11:27)
[2024-10-16] MEDS: OSELTAMIVIR PHOSPHATE 75 MG CAPSULE PO SCH (12:53)
[2024-10-16] MEDS: OSELTAMIVIR PHOSPHATE 30 MG CAPSULE PO SCH (13:24)
[2024-10-16] MEDS: methylPREDNISolone NA SUCC 40 MG/1 ML VIAL IVPUSH SCH (18:07)
[2024-10-16] MEDS: ALBUTEROL SO4 2.5/IPRATROPIUM 0.5 INH SOL 3 ML VIAL.NEB. NEB SCH (20:01)
[2024-10-16] MEDS ORDERED: traZODone HCL 50 MG TABLET (FP) ONE (21:04)
[2024-10-16] MEDS: MELATONIN 5 MG TABLETS PO PRN (21:25)
[2024-10-16] MEDS: traZODone HCL 100 MG TABLET (FP) PO SCH (21:26)
[2024-10-17 09:52] LABS: BASO % 0.1 % (0-2.0); HEMATOCRIT 38.2 % (32.4-45.2); HEMOGLOBIN 12.4 GM/dL (10.7-15.3); LYMPH % 14.9 % (8-40); MCH 31.6 pg (25.7-33.7); MCHC 32.5 g/dl (32.0-36.0); MEAN CELL VOLUME 97.3 fl (80-96); MEAN PLT VOLUME 8.5 fl (7.5-11.1); MONO % 10.7 % (3.8-10.2); NEUT % 74.3 % (42.8-82.8); PLATELET COUNT 151 10^3/uL (134-434); RBC 3.92 M/mm3 (3.60-5.2); RDW 15.3 % (11.6-15.6); WHITE BLOOD COUNT 4.9 K/mm3 (4.0-10.0)
[2024-10-17 10:20] LABS: CALCIUM 9.1 mg/dL (8.5-10.1)
[2024-10-17] MEDS ORDERED: traZODone HCL 50 MG TABLET (FP) ONE (21:15)
[2024-10-18 09:59] LABS: BASO % 0.2 % (0-2.0); EOS % 0.1 % (0-4.5); HEMOGLOBIN 12.1 GM/dL (10.7-15.3); LYMPH % 18.2 % (8-40); MCHC 33.7 g/dl (32.0-36.0); MEAN PLT VOLUME 8.8 fl (7.5-11.1); MONO % 11.1 % (3.8-10.2); NEUT % 70.4 % (42.8-82.8); PLATELET COUNT 154 10^3/uL (134-434); RBC 3.79 M/mm3 (3.60-5.2); RDW 15.4 % (11.6-15.6); WHITE BLOOD COUNT 5.9 K/mm3 (4.0-10.0)
[2024-10-18 10:06] LABS: POTASSIUM 3.8 mmol/L (3.5-5.1)
[2024-10-18 10:22] LABS: CALCIUM 9.2 mg/dL (8.5-10.1)
[2024-10-18 10:25] LABS: ALBUMIN 3.2 g/dl (3.4-5.0); BLOOD UREA NITROGEN 17.6 mg/dL (7-18)
[2024-10-18 10:30] LABS: BILIRUBIN,TOTAL 0.6 mg/dL (0.2-1); TOT PROT 6.4 g/dl (6.4-8.2)
[2024-10-18] MEDS ORDERED: traZODone HCL 50 MG TABLET (FP) ONE (21:11)
[2024-10-19] MEDS: predniSONE 20 MG TABLET (UD) PO SCH (09:22)
[2024-10-19] MEDS ORDERED: ALBUTEROL SO4 HFA INHALER IH PRN (13:08)
[2024-10-19] MEDS: MAGNESIUM OXIDE 400 MG TABLET (FP) PO SCH (15:19)
[2024-10-20] MEDS: BENZONATATE 200 MG CAPSULE PO PRN (11:56)
[2024-10-20] MEDS ORDERED: busPIRone HCL 5 MG TABLET PO ONE (16:13)
[2024-10-20 19:50] VITALS: RESP 18
[2024-10-20] MEDS ORDERED: traZODone HCL 50 MG TABLET (FP) ONE (21:10)
[2024-10-20] MEDS: busPIRone HCL 5 MG TABLET PO ONE (21:11)
[2024-10-21] MEDS ORDERED: traZODone HCL 50 MG TABLET (FP) PO SCH (08:01)
[2024-10-21 09:51] VITALS: BP 101/49; PULSE 68; TEMP 97.4
== END 2024-10-21 10:07 | disposition home or self-care (01) | DRG 194 ==
LOC: JER 13:29 → JERBED 18:26 → J6W 23:58 → OBSVTOIN 10-16 15:02
PROVIDERS: ADMIT Internal Medicine; ATTEND Internal Medicine
DX: J10.1 Influenza due to other identified influenza virus with other respiratory manifestations (principal); E87.3 Alkalosis; B97.4 Respiratory syncytial virus as the cause of diseases classified elsewhere; F03.90 Unspecified dementia, unspecified severity, without behavioral disturbance, psychotic disturbance, mood disturbance, and anxiety; F32.A Depression, unspecified; K21.9 Gastro-esophageal reflux disease without esophagitis; R05.1 Acute cough
CPT/HCPCS: 0241U-QW; 36415; 71045-TC-FY; 80048; 80053; 82803; 83605; 83735; 84100; 84484; 85025; 85610; 85730; 93005; 93010; 94640; 97116-GP; 97161-GP; 99285-25; G0378; J0131

== ENCOUNTER 2024-12-14 23:14 | Inpatient (IN) | payer OTHER ==
[2024-12-15 00:48] LABS: ABSOLUTE IMMATURE GRANULOCYTES 0.01 x10^3/uL (0.0-0.031); BASOPHILS # 0.05 x10^3/uL (0.01-0.08); EOSINOPHIL % 3.4 % (0.7-5.8); EOSINOPHILS # 0.17 x10^3/uL (0.04-0.36); HEMATOCRIT 33.4 % (34.1-44.9); HEMOGLOBIN 10.7 g/dL (11.2-15.7); MEAN CELL VOLUME 97.4 fl (79.4-94.8); MEAN PLT VOLUME 11.1 fl (9.4-12.3); MONOCYTE # 0.74 x10^3/uL (0.24-0.86); MONOCYTE % 14.7 % (4.7-12.5); PLATELET COUNT # 170 x10^3/uL (182-369); RDW 14.6 % (12.4-16.6)
[2024-12-15 01:08] LABS: POTASSIUM 3.7 mmol/L (3.5-5.1)
[2024-12-15 01:10] LABS: CALCIUM 8.5 mg/dL (8.5-10.1)
[2024-12-15 01:11] LABS: ALBUMIN 3.1 g/dl (3.4-5.0); BLOOD UREA NITROGEN 10.6 mg/dL (7-18)
[2024-12-15 01:12] LABS: MAGNESIUM 2.2 mg/dL (1.8-2.4)
[2024-12-15 01:14] LABS: CREATININE 0.9 mg/dL (0.55-1.3); PHOSPHOROUS 3.2 mg/dL (2.5-4.9)
[2024-12-15 01:15] LABS: BILIRUBIN,TOTAL 0.4 mg/dL (0.2-1)
[2024-12-15 01:16] LABS: TOT PROT 6.1 g/dl (6.4-8.2)
[2024-12-15] MEDS: LACTATED RINGERS SOLUTION 1000 ML INFUS.BAG IV ONE (04:02)
[2024-12-15] MEDS ORDERED: DOCUSATE SODIUM 100 MG CAPSULE (FP) PO PRN (05:21)
[2024-12-15 07:04] LABS: EPI CELLS 10 /uL (0-25.1); HYALINE CASTS 1 /uL (0-3.1); URINE APPEARANCE CLOUDY; URINE BACTERIA >9,000 /uL (0-1359); URINE BILIRUBIN NEGATIVE (NEGATIVE); URINE COLOR YELLOW; URINE GLUCOSE (UA) NEGATIVE (NEGATIVE); URINE KETONE NEGATIVE (NEGATIVE); URINE LEUK ESTERASE 3+ (NEGATIVE); URINE NITRITE POSITIVE (NEGATIVE); URINE PROTEIN NEGATIVE (NEGATIVE); URINE RBC 43 /uL (0-23.9); URINE UROBILINOGEN 0.2 mg/dL (0.2-1.0); URINE WBC 684 /uL (0-25.8)
[2024-12-15 07:06] LABS: POTASSIUM 3.4 mmol/L (3.5-5.1)
[2024-12-15 07:16] LABS: BLOOD UREA NITROGEN 8.9 mg/dL (7-18); CALCIUM 8.7 mg/dL (8.5-10.1)
[2024-12-15 07:20] LABS: CREATININE 0.9 mg/dL (0.55-1.3)
[2024-12-15] MEDS ORDERED: ALBUTEROL SO4 HFA INHALER IH PRN (08:13)
[2024-12-15] MEDS ORDERED: BENZONATATE 200 MG CAPSULE PO PRN (08:13)
[2024-12-15] MEDS ORDERED: ZOLPIDEM TARTRATE 5 MG TABLET PO PRN (08:20)
[2024-12-15] MEDS ORDERED: FERROUS SO4 325 MG TABLET (FP) ONE (10:35)
[2024-12-15] MEDS ORDERED: ESCITALOPRAM OXALATE 10 MG TABLET ONE (10:35)
[2024-12-15] MEDS ORDERED: FAMOTIDINE 20 MG TABLET ONE (10:35)
[2024-12-15] MEDS ORDERED: MULTIVITAMINS (DAILY MVI) TABLET (FP) ONE (10:35)
[2024-12-15] MEDS ORDERED: LIDOCAINE 5% TOPICAL PATCH ONE (10:36)
[2024-12-15] MEDS: FERROUS SO4 325 MG TABLET (FP) PO SCH (10:52)
[2024-12-15] MEDS: LIDOCAINE 5% TOPICAL PATCH TP SCH (10:52)
[2024-12-15] MEDS: ESCITALOPRAM OXALATE 10 MG TABLET PO SCH (10:52)
[2024-12-15] MEDS: MULTIVITAMINS (DAILY MVI) TABLET (FP) PO SCH (10:52)
[2024-12-15] MEDS: FAMOTIDINE 20 MG TABLET PO SCH (10:52)
[2024-12-15 19:58] VITALS: BMI 23.4
[2024-12-15] MEDS: SENNOSIDES 8.6MG TABLET (FP) PO SCH (21:39)
[2024-12-15] MEDS: LIDOCAINE PATCH REMOVAL MC SCH (21:39)
[2024-12-15] MEDS ORDERED: traZODone HCL 100 MG TABLET (FP) PO SCH (22:00)
[2024-12-15] MEDS: traZODone HCL 100 MG, traZODone HCL 50 MG PO SCH (22:19)
[2024-12-16 07:56] LABS: ABSOLUTE IMMATURE GRANULOCYTES 0.02 x10^3/uL (0.0-0.031); BASOPHILS # 0.06 x10^3/uL (0.01-0.08); EOSINOPHIL % 3.8 % (0.7-5.8); EOSINOPHILS # 0.19 x10^3/uL (0.04-0.36); HEMATOCRIT 35.3 % (34.1-44.9); HEMOGLOBIN 11.6 g/dL (11.2-15.7); MCHC 32.9 g/dl (32.2-35.5); MEAN CELL VOLUME 96.2 fl (79.4-94.8); MEAN PLT VOLUME 11.4 fl (9.4-12.3); MONOCYTE % 15.8 % (4.7-12.5); PLATELET COUNT # 175 x10^3/uL (182-369); RDW 14.3 % (12.4-16.6)
[2024-12-16 08:15] LABS: POTASSIUM 3.6 mmol/L (3.5-5.1)
[2024-12-16 08:21] LABS: CALCIUM 8.9 mg/dL (8.5-10.1)
[2024-12-16 08:22] LABS: BLOOD UREA NITROGEN 6.9 mg/dL (7-18)
[2024-12-16 08:25] LABS: CREATININE 0.9 mg/dL (0.55-1.3)
[2024-12-16] MEDS: MIDODRINE HCL 5 MG TABLET PO SCH (10:35)
[2024-12-16 10:53] LABS: N-TERMINAL BNP 853.2 pg/ml (5-450)
[2024-12-16] MEDS: CEFTRIAXONE 1 G/50 ML PREMIX 50 ML IVPB SCH (11:40)
[2024-12-16] MEDS: MELATONIN 5 MG TABLETS PO PRN (21:09)
[2024-12-16] MEDS: POLYETHYLENE GLYCOL (HEALTHYLAX) 3350 17 GM PACKET PO SCH (21:10)
[2024-12-17 07:01] LABS: ABSOLUTE IMMATURE GRANULOCYTES 0.01 x10^3/uL (0.0-0.031); BASOPHILS # 0.05 x10^3/uL (0.01-0.08); EOSINOPHIL % 2.5 % (0.7-5.8); EOSINOPHILS # 0.11 x10^3/uL (0.04-0.36); HEMATOCRIT 34.2 % (34.1-44.9); HEMOGLOBIN 11.4 g/dL (11.2-15.7); MCHC 33.3 g/dl (32.2-35.5); MEAN CELL VOLUME 95.8 fl (79.4-94.8); MEAN PLT VOLUME 11.1 fl (9.4-12.3); MONOCYTE % 16.2 % (4.7-12.5); PLATELET COUNT # 187 x10^3/uL (182-369); RDW 14.2 % (12.4-16.6)
[2024-12-17 07:20] LABS: POTASSIUM 3.4 mmol/L (3.5-5.1)
[2024-12-17 07:21] LABS: CALCIUM 8.9 mg/dL (8.5-10.1)
[2024-12-17 07:22] LABS: BLOOD UREA NITROGEN 7.7 mg/dL (7-18)
[2024-12-17] MEDS: ACETAMINOPHEN 325 MG TABLET (FP) PO PRN (09:51)
[2024-12-17] MEDS ORDERED: ALBUTEROL SO4 HFA INHALER IH PRN (17:00)
[2024-12-17] MEDS ORDERED: MELATONIN 5 MG TABLETS PO PRN (17:00)
[2024-12-17] MEDS ORDERED: BENZONATATE 200 MG CAPSULE PO PRN (17:00)
[2024-12-17] MEDS ORDERED: DOCUSATE SODIUM 100 MG CAPSULE (FP) PO PRN (17:00)
[2024-12-17] MEDS ORDERED: ACETAMINOPHEN 325 MG TABLET (FP) PO PRN (17:00)
[2024-12-17] MEDS: MIDODRINE HCL 5 MG TABLET PO SCH (18:55)
[2024-12-17] MEDS: traZODone HCL 100 MG, traZODone HCL 50 MG PO SCH (21:33)
[2024-12-17] MEDS: SENNOSIDES 8.6MG TABLET (FP) PO SCH (21:34)
[2024-12-17] MEDS: FAMOTIDINE 20 MG TABLET PO SCH (21:34)
[2024-12-17] MEDS: CEFPODOXIME PROXETIL 100 MG TABLET PO SCH (21:34)
[2024-12-17] MEDS: POLYETHYLENE GLYCOL (HEALTHYLAX) 3350 17 GM PACKET PO SCH (21:35)
[2024-12-17] MEDS: LIDOCAINE PATCH REMOVAL MC SCH (21:36)
[2024-12-17] MEDS ORDERED: LIDOCAINE PATCH REMOVAL MC SCH (22:00)
[2024-12-17] MEDS ORDERED: CEFPODOXIME PROXETIL 100 MG TABLET PO SCH (22:00)
[2024-12-18] MEDS: FERROUS SO4 325 MG TABLET (FP) PO SCH (10:25)
[2024-12-18] MEDS: MULTIVITAMINS (DAILY MVI) TABLET (FP) PO SCH (10:25)
[2024-12-18] MEDS: ESCITALOPRAM OXALATE 10 MG TABLET PO SCH (10:25)
[2024-12-18] MEDS: LIDOCAINE 5% TOPICAL PATCH TP SCH (10:28)
[2024-12-18 15:23] LABS: ABSOLUTE IMMATURE GRANULOCYTES 0.01 x10^3/uL (0.0-0.031); BASOPHILS # 0.04 x10^3/uL (0.01-0.08); EOSINOPHIL % 2.4 % (0.7-5.8); EOSINOPHILS # 0.12 x10^3/uL (0.04-0.36); HEMATOCRIT 34.8 % (34.1-44.9); HEMOGLOBIN 11.4 g/dL (11.2-15.7); MCHC 32.8 g/dl (32.2-35.5); MEAN CELL VOLUME 96.7 fl (79.4-94.8); MEAN PLT VOLUME 10.9 fl (9.4-12.3); MONOCYTE # 0.65 x10^3/uL (0.24-0.86); MONOCYTE % 13.1 % (4.7-12.5); PLATELET COUNT # 182 x10^3/uL (182-369); RDW 14.6 % (12.4-16.6)
[2024-12-18 15:42] LABS: POTASSIUM 4.2 mmol/L (3.5-5.1)
[2024-12-18 15:44] LABS: CALCIUM 8.6 mg/dL (8.5-10.1)
[2024-12-18 15:45] LABS: BLOOD UREA NITROGEN 10.3 mg/dL (7-18)
[2024-12-18 15:48] LABS: CREATININE 0.8 mg/dL (0.55-1.3); PHOSPHOROUS 3.1 mg/dL (2.5-4.9)
[2024-12-18 15:50] LABS: BILIRUBIN,TOTAL 0.2 mg/dL (0.2-1); TOT PROT 5.9 g/dl (6.4-8.2)
[2024-12-18] MEDS: ATORVASTATIN CA 10 MG TABLET (FP) PO SCH (22:08)
[2024-12-19] MEDS: ZOLPIDEM TARTRATE 5 MG TABLET PO PRN (01:42)
[2024-12-20 13:54] VITALS: RESP 16
[2024-12-20 14:25] VITALS: BP 100/55; PULSE 56; TEMP 98.7
== END 2024-12-20 14:45 | DRG 690 ==
LOC: JER 23:14 → JERBED 12-15 04:39 → OBSVTOIN 12-15 10:39 → J4W 12-15 19:12 → J7W 12-17 13:24
PROVIDERS: ADMIT Internal Medicine; ATTEND Internal Medicine
DX: N39.0 Urinary tract infection, site not specified (principal); I24.89 Other forms of acute ischemic heart disease; K21.9 Gastro-esophageal reflux disease without esophagitis; R62.7 Adult failure to thrive; F03.90 Unspecified dementia, unspecified severity, without behavioral disturbance, psychotic disturbance, mood disturbance, and anxiety; R29.6 Repeated falls; I95.9 Hypotension, unspecified; W19.XXXA Unspecified fall, initial encounter; Y93.89 Activity, other specified; Y92.89 Other specified places as the place of occurrence of the external cause; Y99.8 Other external cause status; R00.1 Bradycardia, unspecified; E87.6 Hypokalemia
CPT/HCPCS: 0241U-QW; 36415; 70450-TC; 71045-TC-FY; 72125-TC; 72170-TC-FY; 73030-TC-RT-FY; 73110-TC-RT-FY; 73130-TC-RT-FY; 73502-TC-RT-FY; 74240-TC-FY; 80048; 80053; 80061; 81003; 82533; 82607; 82746; 82962; 83036; 83735; 83880; 84100; 84443; 84484; 85025; 87086; 87186; 87635; 93005; 93010; 93306-TC; 97116-GP; 97162-GP; 99285-25; G0378